=== PATIENT | female | born 1965 | race Caucasian/White ===

== ENCOUNTER 2017-04-22 17:45 | Inpatient (IN) | payer BC ==
[~2017-04-22 17:45] MED LIST: Lidocaine 1% PF 5 ML VIAL ONE; Ondansetron HCl/PF 4 MG/2 ML Vial ONE; PROPOFOL 200 MG/20 ML VIAL ONE; Succinylcholine Chloride 20 MG/ML 10 ml SYRINGE FS ONE
[2017-04-22] MEDS ORDERED: Lidocaine 1% w/Epinephrine 1:200K 30 ML VIAL ONE (18:23)
[2017-04-22] MEDS ORDERED: Bupivacaine 0.25% HCL 30 ML VIAL ONE (18:23)
[2017-04-22] MEDS ORDERED: Midazolam HCl 2 mg/2 ml Vial ONE (18:39)
[2017-04-22] MEDS ORDERED: Fentanyl 100 MCG/2 ML VIAL ONE ×3 (18:39→18:46)
[2017-04-22] MEDS ORDERED: cefOXitin 2 GM VIAL ONE (19:28)
[2017-04-22] MEDS ORDERED: Ondansetron HCl/PF 4 MG/2 ML Vial IVP PRN ×2 (20:01→20:15)
[2017-04-22] MEDS ORDERED: Dextrose 5% in Water 1,000 ML IV PRN (20:01)
[2017-04-22] MEDS ORDERED: Morphine 4 MG/ML Carpuject SLOW IVP PRN (20:01)
[2017-04-22] MEDS ORDERED: HYDROcodone/Acetaminophen 10/325 mg Tablet PO PRN (20:01)
[2017-04-22] MEDS ORDERED: Promethazine HCl 25 MG/ML VIAL IM PRN ×2 (20:01→20:15)
[2017-04-22] MEDS ORDERED: Dextrose 50% Abboject 50 ML SYRINGE SLOW IVP PRN (20:01)
[2017-04-22] MEDS ORDERED: hydrALAZINE 20 MG/ML VIAL SLOW IVP PRN (20:01)
[2017-04-22] MEDS ORDERED: Promethazine HCl 25 MG/ML VIAL SLOW IVP PRN (20:15)
[2017-04-22] MEDS: Famotidine 20 MG TAB PO SCH (21:56)
[2017-04-22] MEDS: D5 1/2 NS w/20 mEq KCL 1,000 ML IV SCH (21:57)
[2017-04-22] MEDS: Famotidine/PF 20 mg/2ml Vial SLOW IVP SCH (21:57)
[2017-04-22] MEDS: Piperacillin/Tazobactam 3.375 GM in Sodium Chloride 0.9% 100 ML IVPB SCH (22:02)
[2017-04-22 22:28] VITALS: BMI 25.4
[2017-04-22] MEDS: Ketorolac Tromethamine 30 MG/ML VIAL IVP SCH (23:17)
--- NOTE | 2017-04-23 01:03 | OP ---
PREOPERATIVE DIAGNOSIS: Acute appendicitis. SURGEON: Jong Schmidt M.D. PROCEDURE PERFORMED: Laparoscopic appendectomy. INDICATIONS: This is a 51-year-old female with a 2-day history of right lower quadrant pain, nausea, vomiting. CT scan showed acute appendicitis. FINDINGS: Acute gangrenous appendicitis. PROCEDURE IN DETAIL: After informed consent was obtained, patient was taken to the operating room an d given general endotracheal anesthesia. She was placed in the supine position. The abdomen was pre pped and draped in the usual fashion. Local anesthesia infiltrated subcutaneously and deep and a sub umbilical incision was performed. Subcu divided sharply. The fascia grasped and two stay sutures of 0 Vicryl placed to either side of midline. Midline incised. Digital palpation revealed no local ad hesions. A blunt 10-12 mm trocar inserted. Pneumoperitoneum was created to a pressure of 15 mmHg. A 0-degree laparoscope inserted under direct vision, two 5-mm ports were placed, one in suprapubic an d one in right lateral abdomen. The appendix was found. The mesoappendix was very, very enlarged an d inflamed. I did not see any free purulent fluid. The mesoappendix was divided utilizing the LigaS ure. The base of the appendix was divided utilizing the linear 45 mm white load stapler. It was gabriele steven in an Endosac and removed from the abdomen in an Endosac, it was gangrenous. It was sent to path ology for further analysis. Hemostasis assured. The pelvis was irrigated, irrigation fluid removed. Hemostasis assured. Trocars and retractors removed. The fascia closed with interrupted 2-0 Vicryl suture. Skin closed with interrupted 4-0 Rapide. Dermabond applied. Patient tolerated the procedu re well, transferred to recovery in good condition. Sponge and needle count verified correct x2.
[2017-04-23] MEDS: Piperacillin/Tazobactam 3.375 GM in Sodium Chloride 0.9% 100 ML IVPB SCH ×2 (02:42→10:22)
[2017-04-23] MEDS: HYDROcodone/Acetaminophen 10/325 mg Tablet PO PRN ×2 (02:50→08:30)
[2017-04-23 04:51] LABS: Band 15 % (5-11); Hemoglobin 15.1 g/dL (12.0-16.0); Lymphocytes 3 % (21-51); MDiff Complete? YES; Mean Corpuscular HGB CONC 32.6 g/dL (32.0-36.0); Mean Corpuscular Hemoglobin 35.9 pg (27.0-31.0); Monocytes 6 % (0-10); Neutrophil 76 % (42-75); PLT Morphology Comment Appears Adequate; Platelet Count 166 thou/uL (130-400); RBC Distribution Width 14.5 % (11.5-14.5); White Blood Cell (WBC) Count 17.2 thou/uL (4.8-10.8)
[2017-04-23 04:55] LABS: Anion Gap 16 mmol/L (10-20); BUN (Urea Nitrogen) 10 mg/dL (9.8-20.1); Calc. Creatinine Clearance 110 mL/min (70-130); Calcium 8.6 mg/dL (7.8-10.44); Carbon Dioxide 22 mmol/L (22-29); Chloride 103 mmol/L (98-107); Estimated GFR-MDRD Greater than 90; Glucose 120 mg/dL (70-105); Potassium 3.9 mmol/L (3.5-5.1); Sodium 137 mmol/L (136-145)
[2017-04-23] MEDS: Ketorolac Tromethamine 30 MG/ML VIAL IVP SCH (05:38)
[2017-04-23] MEDS: Famotidine 20 MG TAB PO SCH (08:30)
[2017-04-23 08:31] VITALS: BP 109/65; TEMP 97.6
[2017-04-23] MEDS: Famotidine/PF 20 mg/2ml Vial SLOW IVP SCH (08:31)
[2017-04-23] MEDS ORDERED: Enoxaparin Sodium 40 MG/0.4 ML SYRINGE SC SCH (09:00)
[2017-04-23] MEDS: D5 1/2 NS w/20 mEq KCL 1,000 ML IV SCH (10:22)
--- NOTE | 2017-04-23 12:10 | DIS ---
DISCHARGE DIAGNOSIS: Acute gangrenous appendicitis. PROCEDURES DURING ADMISSION: Laparoscopic appendectomy. HOSPITAL COURSE: The patient was admitted, given IV antibiotics, taken to the operating room where s he underwent a laparoscopic appendectomy. Postoperatively, she has done well. Pain is much better. She is tolerating liquids well. She is afebrile. She is discharged home in good condition on hydro codone and Zofran. She will follow up with me in 2 weeks.
== END 2017-04-23 10:23 | disposition home or self-care (01) | DRG 343 ==
LOC: ERS 17:45 → SDC 17:45 → EDSTATUS 17:47 → SURG A 20:01
PROVIDERS: ADMIT Surgery; ATTEND Surgery
PROC: 0DTJ4ZZ Resection of Appendix, Percutaneous Endoscopic Approach (ICD-10-PCS; principal; 2017-04-22)
DX: K35.80 Unspecified acute appendicitis (principal); F17.210 Nicotine dependence, cigarettes, uncomplicated; I10 Essential (primary) hypertension
CPT/HCPCS: 36415; 80048; 85025; 88304; J0131; J0694; J1650; J1885; J2001; J2250; J2405; J2543; J2704; J3010; J7050; S0020; S0028